=== PATIENT | female | born 1990 | race American Indian/Alaskan Native ===

== ENCOUNTER 2018-12-25 14:50 | Emergency (ER) | payer SELFPAY ==
--- NOTE | 2018-12-25 15:12 | Event Note ---
ED Screening Note Date of service: 12/25/18 Time: 15:12 ED Screening Note: 28 y/o female comes in for 1 month history of rectal pain. This initial assessment/diagnostic orders/clinical plan/treatment(s) is/are subject to change based on patients health status, clinical progression and re-assessment by fellow clinical providers in the ED. Further treatment and workup at subsequent clinical providers discretion. Patient/guardian urged not to elope from the ED as their condition may be serious if not clinically assessed and managed. Initial orders include:
[2018-12-25 15:15] VITALS: BP 123/75
[2018-12-25] MEDS ORDERED: TORADOL IM ONE (16:12)
[2018-12-25] MEDS ORDERED: BACTRIM DS PO ONE (16:34)
--- NOTE | 2018-12-25 16:42 | Emergency Department Report ---
ED General Adult HPI - General Chief complaint: Rectal Pain Stated complaint: RECTAL PAIN Time Seen by Provider: 12/25/18 15:11 Source: patient Mode of arrival: Wheelchair Limitations: No Limitations - History of Present Illness -: Gradual (Reports hemorrhoids for approximately 1 month. Reports hx of hemorrhoids in [place] where she moved from 1 month ago) Location: buttocks (Reports rectal pain worsening over the past week. ) Radiation: non-radiation Severity scale (0 -10): 2 Quality: aching Consistency: constant Improves with: none Worsens with: other (bowel movement) Associated Symptoms: denies: confusion, chest pain, cough, diaphoresis, fever/chills, headaches, loss of appetite, malaise, nausea/vomiting, rash, seizure, shortness of breath, syncope, weakness - Related Data Previous Rx's Medication Instructions Recorded Last Taken Type Ibuprofen [Motrin 600 MG tab] 600 mg PO Q6H PRN #24 tablet 12/25/18 Unknown Rx Silver Sulfadiazine [Silvadene] 50 gm TP TID 10 Days cream..g. 12/25/18 Unknown Rx Sulfamethoxazole/Trimethoprim 1 each PO BID #14 tablet 12/25/18 Unknown Rx [Bactrim DS TAB] ED Review of Systems ROS: Stated complaint: RECTAL PAIN Other details as noted in HPI Other: GENERAL: No weight change, fatigue, fever, chills, or night sweats SKIN: No changes in skin or hair, no itching, no rashes, no jaundice HEAD: No trauma, headache, or visual changes EYES: No blurriness, tearing, itching, acute visual loss, conjunctival discoloration, or scleral icterus EARS: No hearing loss, tinnitus, vertigo, or earache NOSE: No rhinorrhea, stuffiness, sneezing, itching, or epistaxis MOUTH: No bleeding gums, hoarseness, sore throat, or swelling CARDIAC: No new murmur, chest pain, palpitations, dyspnea on exertion, orthopnea, PND, or edema RESPIRATORY: No shortness of breath, wheeze, cough, sputum production, hemoptysis, pneumonia, asthma, bronchitis, or emphysema GI: Reports rectal pain. No change in appetite, nausea, vomiting, dysphagia, diarrhea, constipation, hematemesis, melena, hematochezia, or abdominal pain URINARY: No frequency, urgency, polyuria, dysuria, hematuria, or incontinence MUSCULOSKELETAL: No muscle weakness, joint stiffness, decrease in range of motion, redness, swelling NEUROLOGIC: No headache, loss of sensation, numbness, tingling, tremors, weakness, paralysis, seizures HEMATOLOGIC: No anemia, easy bruising, bleeding, petechiae, or purpura ENDOCRINE: No hot or cold intolerance, sweating, polyuria, polydipsia or, polyphagia no thyroid problems PSYCHIATRIC: No change in mood, no anxiety, no depression ED Past Medical Hx - Past Medical History Previous Medical History?: Yes Additional medical history: hemmorhoids - Surgical History Past Surgical History?: Yes Additional Surgical History: C section - Social History Smoking Status: Never Smoker Substance Use Type: None - Medications Home Medications: Home Medications Medication Instructions Recorded Confirmed Last Taken Type Ibuprofen [Motrin 600 MG tab] 600 mg PO Q6H PRN #24 tablet 12/25/18 Unknown Rx Silver Sulfadiazine [Silvadene] 50 gm TP TID 10 Days cream..g. 12/25/18 Unknown Rx Sulfamethoxazole/Trimethoprim 1 each PO BID #14 tablet 12/25/18 Unknown Rx [Bactrim DS TAB] ED Physical Exam - General Limitations: No Limitations - Other Other exam information: GENERAL: Patient in no acute distress HEAD: Normocephalic, atraumatic EYES: PERRLA, EOM intact, no scleral icterus, no conjunctival hemorrhage, visual damon and acuity wnl NOSE: No tenderness, discharge, sinus tenderness MOUTH: No erythema, bleeding, exudate HEART: Regular rate and rhythm, no murmur, S1-S2 are auscultated, pulses are symmetric LUNGS: Bilateral breath sounds, No tachypnea, No retractions, No wheezing, rales, rhonchi ABDOMEN: Small soft nonthrombotic hemorrhoid external without discharge or bleeding. Normal bowel sounds, abdomen soft, no tenderness, no rebound, no guarding, no distention, no masses, no CVA tenderness MUSCULOSKELETAL: Normal joint range of motion, no redness, no swelling, no tenderness NEUROLOGIC: GCS 15, Alert and Oriented x3, Cranial nerves intact, normal sensation, normal strength, normal gait, no cerebellar deficit, NIHSS 0 SKIN: Perirectal superficial erythema and minor skin breakdown first degree burn. Skin is warm and dry ED Course Vital Signs 12/25/18 15:11 Temperature 98.3 F Pulse Rate 118 H Respiratory 16 Rate Blood Pressure 123/75 O2 Sat by Pulse 99 Oximetry ED Medical Decision Making - Medical Decision Making Patient comfortable. Plan discharge with outpatient follow up. Return if any worsening. Critical care attestation.: If time is entered above; I have spent that time in minutes in the direct care of this critically ill patient, excluding procedure time. ED Disposition Clinical Impression: Cellulitis Qualifiers: Site of cellulitis: unspecified site Qualified Code(s): L03.90 - Cellulitis, unspecified Disposition: TO HOME OR SELFCARE Is pt being admited?: No Condition: Stable Instructions: Cellulitis (ED) Prescriptions: Sulfamethoxazole/Trimethoprim [Bactrim DS TAB] 1 each PO BID #14 tablet Ibuprofen [Motrin 600 MG tab] 600 mg PO Q6H PRN #24 tablet PRN Reason: Pain Silver Sulfadiazine [Silvadene] 50 gm TP TID 10 Days cream..g. Referrals: JOHN CANALES MD [Staff Physician] - 2-[address] [facility] [place] [Outside] - 2-3 Days Time of Disposition: 16:47
[2018-12-25] MEDS ORDERED: THERMAZENE 50 GRAM TP ONE (17:00)
== END 2018-12-25 17:09 | disposition home or self-care (01) ==
LOC: ED 14:50
DX: L03.90 Cellulitis, unspecified (principal)
CPT/HCPCS: 96372; 99283; J1885

== ENCOUNTER 2020-08-20 02:39 | Emergency (ER) | payer MEDICAID ==
[2020-08-20] MEDS ORDERED: ONDANSETRON 4 MG ODT TAB PO ONE (03:54)
--- NOTE | 2020-08-20 04:17 | Emergency Department Report ---
ED General Adult HPI - General Chief complaint: Dental/Oral Stated complaint: MOUTH PAIN/TOOTH ACHE Source: patient Mode of arrival: Ambulatory Limitations: No Limitations - History of Present Illness Initial comments: Patient is a 29-year-old -[place] female with no past medical history who presents to the ED with complaint of acute onset persistent severe right maxillary premolar molar toothache with swollen gums for the last 2 days. Patient states that she has not been able to sleep because of worsening dental pain. Patient states that in the last 6 hours, she has not been able to eat anything because of worsening pain. Patient denies dizziness, syncope, chest pain, shortness of breath, neck pain, sore throat, nasal and sinus congestion, traumatic injury or headache, fever and chills, nausea and vomiting. MD Complaint: Toothache; swollen gums -: Sudden, days(s) (2) Location: mouth Radiation: non-radiation Severity scale (0 -10): 9 Quality: aching, sharp Consistency: constant Improves with: none Worsens with: eating Associated Symptoms: denies other symptoms. denies: confusion, cough, diaphoresis, fever/chills, headaches, loss of appetite, malaise, nausea/vomiting, seizure, shortness of breath, syncope, weakness Treatments Prior to Arrival: Aspirin - Related Data Previous Rx's Medication Instructions Recorded Last Taken Type Ibuprofen [Motrin 600 MG tab] 600 mg PO Q6H PRN #24 tablet 12/25/18 Unknown Rx Silver Sulfadiazine [Silvadene] 50 gm TP TID 10 Days cream..g. 12/25/18 Unknown Rx Sulfamethoxazole/Trimethoprim 1 each PO BID #14 tablet 12/25/18 Unknown Rx [Bactrim DS TAB] Clindamycin [Clindamycin CAP] 300 mg PO Q8HR #60 capsule 08/20/20 Unknown Rx Ibuprofen [Motrin] 800 mg PO Q8HR PRN #30 tablet 08/20/20 Unknown Rx traMADoL [Ultram] 50 mg PO Q6HR PRN #12 tablet 08/20/20 Unknown Rx Allergies Allergy/AdvReac Type Severity Reaction Status Date / Time shellfish derived Allergy Anaphylaxis Verified 08/20/20 02:56 ED Review of Systems ROS: Stated complaint: MOUTH PAIN/TOOTH ACHE Other details as noted in HPI Constitutional: denies: chills, fever Eyes: denies: eye pain, eye discharge, vision change ENT: dental pain (Severely right maxillary premolar molar toothache), other (Swollen, painful right maxillary gingiva). denies: ear pain, throat pain Respiratory: denies: cough, shortness of breath, wheezing Cardiovascular: denies: chest pain, palpitations Endocrine: no symptoms reported Gastrointestinal: denies: abdominal pain, nausea, vomiting, diarrhea Genitourinary: denies: urgency, dysuria, discharge Musculoskeletal: denies: back pain, joint swelling, arthralgia Skin: denies: rash, lesions Neurological: denies: headache, weakness, paresthesias Psychiatric: denies: anxiety, depression Hematological/Lymphatic: denies: easy bleeding, easy bruising ED Past Medical Hx - Past Medical History Additional medical history: hemmorhoids - Surgical History Additional Surgical History: C section - Social History Smoking Status: Never Smoker - Medications Home Medications: Home Medications Medication Instructions Recorded Confirmed Last Taken Type Ibuprofen [Motrin 600 MG tab] 600 mg PO Q6H PRN #24 tablet 12/25/18 Unknown Rx Silver Sulfadiazine [Silvadene] 50 gm TP TID 10 Days cream..g. 12/25/18 Unknown Rx Sulfamethoxazole/Trimethoprim 1 each PO BID #14 tablet 12/25/18 Unknown Rx [Bactrim DS TAB] Clindamycin [Clindamycin CAP] 300 mg PO Q8HR #60 capsule 08/20/20 Unknown Rx Ibuprofen [Motrin] 800 mg PO Q8HR PRN #30 tablet 08/20/20 Unknown Rx traMADoL [Ultram] 50 mg PO Q6HR PRN #12 tablet 08/20/20 Unknown Rx ED Physical Exam - General Limitations: No Limitations General appearance: alert, in no apparent distress - Head Head exam: Present: atraumatic, normocephalic, normal inspection - Eye Eye exam: Present: normal appearance, PERRL, EOMI Pupils: Present: normal accommodation - ENT ENT exam: Present: mucous membranes moist, TM's normal bilaterally, normal external ear exam, other (Swollen, severely tender right maxillary gingiva; severely tender right maxillary premolar and molar teeth) - Neck Neck exam: Present: normal inspection, full ROM - Respiratory Respiratory exam: Present: normal lung sounds bilaterally. Absent: respiratory distress, wheezes, rales, stridor, chest wall tenderness, accessory muscle use, decreased breath sounds, prolonged expiratory - Cardiovascular Cardiovascular Exam: Present: regular rate, normal rhythm, normal heart sounds. Absent: systolic murmur, diastolic murmur, rubs, gallop - GI/Abdominal GI/Abdominal exam: Present: soft, normal bowel sounds. Absent: tenderness, guarding, hyperactive bowel sounds, hypoactive bowel sounds, organomegaly - Extremities Exam Extremities exam: Present: normal inspection, full ROM, normal capillary refill - Back Exam Back exam: Present: normal inspection, full ROM. Absent: tenderness, CVA tenderness (R), CVA tenderness (L), muscle spasm, paraspinal tenderness, vertebral tenderness - Neurological Exam Neurological exam: Present: alert, oriented X3, CN II-XII intact, normal gait, reflexes normal - Psychiatric Psychiatric exam: Present: normal affect, normal mood - Skin Skin exam: Present: warm, dry, intact, normal color. Absent: rash ED Course Vital Signs 08/20/20 02:57 Temperature 98.0 F Pulse Rate 95 H Respiratory 16 Rate Blood Pressure 118/88 O2 Sat by Pulse 99 Oximetry ED Medical Decision Making - Medical Decision Making This is a 29-year-old -[place] female with no past medical history who presents to the ED with complaint of acute onset persistent severe right maxillary premolar molar toothache with swollen gums for the last 2 days. Patient states that she has not been able to sleep because of worsening dental pain. Patient states that in the last 6 hours, she has not been able to eat anything because of worsening pain. In the ED, patient is alert and oriented x3 and is not in any distress but appears to be in significant pain, crying and moving around during the physical exam. Patient is however hemodynamically stable. Patient was treated for pain in the ED and on reevaluation, patient's pain is well controlled medications. Patient was discharged home on pain medication and prophylactic antibiotics and was advised to follow-up with her dentist or primary care physician in 7 to 10 days for reevaluation. Patient was advised return to the ED immediately if symptoms get worse. - Differential Diagnosis Dental abscess; gingivitis; dental caries Critical care attestation.: If time is entered above; I have spent that time in minutes in the direct care of this critically ill patient, excluding procedure time. ED Disposition Clinical Impression: Dental abscess, Acute gingivitis, Dental caries Disposition: TO HOME OR SELFCARE Is pt being admited?: No Does the pt Need Aspirin: No Condition: Stable Instructions: Dental Abscess, [id number], Trench Mouth Additional Instructions: Take medication with food, drink plenty of fluids and follow-up with your primary care physician or dentist in 7 to 10 days for reevaluation. Return to the ED immediately if your symptoms get worse. Prescriptions: Clindamycin [Clindamycin CAP] 300 mg PO Q8HR #60 capsule Ibuprofen [Motrin] 800 mg PO Q8HR PRN #30 tablet PRN Reason: Pain , Severe (7-10) traMADoL [Ultram] 50 mg PO Q6HR PRN #12 tablet PRN Reason: Pain Referrals: [facility] [Outside] - 7-10 days Time of Disposition: 04:14 Print Language: MONGOLIAN
[2020-08-20] MEDS: IBUPROFEN 600 MG TAB PO ONE ×2 (04:38→04:45)
[2020-08-20] MEDS: HYDROcodone/ACETAMINOPHEN 5-325 MG TAB PO ONE ×2 (04:39→04:45)
[2020-08-20 05:11] VITALS: BP 122/68
== END 2020-08-20 05:11 | disposition home or self-care (01) ==
LOC: ED 02:39
DX: K04.7 Periapical abscess without sinus (principal); K02.9 Dental caries, unspecified; K05.00 Acute gingivitis, plaque induced; Z79.899 Other long term (current) drug therapy; Z91.013 Allergy to seafood; Z98.890 Other specified postprocedural states
CPT/HCPCS: 99282; Q0162

== ENCOUNTER 2020-08-21 09:58 | Emergency (ER) | payer MEDICAID ==
[2020-08-21 10:26] VITALS: BP 130/77
--- NOTE | 2020-08-21 10:28 | Emergency Department Report ---
Chief Complaint: Dental/Oral Stated Complaint: DENTAL PAIN Time Seen by Provider: 08/21/20 10:28 - HPI History of Present Illness: Patient is a 29-year-old female presents emergency room complaints of right upper dental pain that began 3 days ago. Patient was evaluated emergency department last night and given prescriptions for antibiotics and pain medication. She states that she called dentist today and was not able to get in for 3 months. She states that she only called one dental clinic. She denies any fever, nausea, vomiting, diarrhea, facial swelling, difficulty swallowing, difficulty breathing. She denies any significant past medical history. No allergies to medications. Vitals are normal On exam: There is a cracked right upper back molar, no induration or edema of the gumline, no signs of any fluctuance, there is an impacted left lower wisdom tooth, there are no signs of infection, no signs of dental abscess, no facial cellulitis, uvula is midline, no uvular edema or deviation, no trismus, no tongue elevation, no muffled voice, no submandibular edema Patient is presenting to the emergency department with complaints of dental carry which is causing dentalgia Patient was prescribed medications in the emergency department yesterday 08/20/2020 She has no signs of dental abscess, facial cellulitis, facial abscess, [place] Patient was given an entire list of community dental clinics today Also advised patient to check with her insurance for more dental clinics and to begin calling today Discuss strict return precautions with patient Medical screen examination performed and there is no threat to life or limb at this time - Exam Vital Signs: Vital Signs 08/21/20 10:24 Temperature 98.8 F Pulse Rate 90 Respiratory 20 Rate Blood Pressure 130/77 O2 Sat by Pulse 99 Oximetry MSE screening note: Focused history and physical exam performed. Due to findings the following was ordered: ED Disposition for MSE Clinical Impression: Dental caries Disposition: Z-07 MED SCREENING EXAM-LEFT Is pt being admited?: No Does the pt Need Aspirin: No Condition: Stable Additional Instructions: May continue taking medication you are prescribed during your last emergency room visit. There are no signs of infection, likely do not need antibiotics. Gargle with warm salt water 3-5 times a day. May use a dental putty [id number]. Follow-up with a dentist. It is very important that you follow-up. You were given a list of multiple dental clinics today. You may also check with your insurance and began calling today. Return to emergency room for any new or worsening symptoms. Referrals: [facility] [Outside] - 2-3 Days [facility] [Outside] - 2-3 Days Time of Disposition: 10:31 Print Language: MAURITIAN
== END 2020-08-21 11:19 | disposition left against medical advice (07) ==
LOC: ED 09:58
DX: K08.89 Other specified disorders of teeth and supporting structures (principal); Z53.21 Procedure and treatment not carried out due to patient leaving prior to being seen by health care provider

== ENCOUNTER 2020-10-08 21:59 | Emergency (ER) | payer MEDICAID | END 2020-10-08 22:30 | disposition left against medical advice (07) | LOC: ED 21:59 | DX: R07.89 Other chest pain (principal); R06.02 Shortness of breath; Z53.21 Procedure and treatment not carried out due to patient leaving prior to being seen by health care provider ==